=== PATIENT | male | born 1975 | race African-American/Black ===

== ENCOUNTER 2018-04-18 13:33 | Inpatient (IN) | payer BC ==
[2018-04-18 18:01] VITALS: BMI 26.4
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
[2018-04-18] MEDS ORDERED: chlordiazePOXIDE HCL 25 MG CAPSULE PO PRN (20:00)
[2018-04-18] MEDS ORDERED: MENTHOL/PHENOL 1 EACH UD MM PRN (20:00)
[2018-04-18] MEDS ORDERED: MAGNESIUM HYDROX 2400MG/30ML ORAL SUSPENSION 30 ML CUP PO PRN (20:00)
[2018-04-18] MEDS ORDERED: LOPERAMIDE HCL 2 MG CAPSULE PO PRN (20:00)
[2018-04-18] MEDS ORDERED: P-EPHED 60MG/TRIPROLIDI 2.5MG TABLET PO PRN (20:00)
[2018-04-18] MEDS ORDERED: NICOTINE POLACRILEX 2 MG GUM BUC PRN (20:00)
[2018-04-18] MEDS ORDERED: hydrOXYzine PAMOATE 50 MG CAPSULE (FP) PO PRN (20:00)
[2018-04-18] MEDS ORDERED: guaiFENesin/D-METHORPHAN HB 10 ML UNIT-DOSE CUPS PO PRN (20:00)
[2018-04-18] MEDS ORDERED: IBUPROFEN 400 MG TABLET (FP) PO PRN ×2 (20:00→20:05)
[2018-04-18] MEDS ORDERED: MAG HYDROX/AL HYDROX/SIMETH 30 ML UNIT-DOSE CUP PO PRN (20:00)
[2018-04-18] MEDS ORDERED: MAGNESIUM CITRATE 300 ML BOTTLE PO PRN (20:00)
[2018-04-18] MEDS ORDERED: ACETAMINOPHEN 325 MG TABLET (FP) PO PRN (20:04)
[2018-04-18] MEDS ORDERED: chlordiazePOXIDE HCL 25 MG CAPSULE PO ONE (20:15)
[2018-04-18] MEDS ORDERED: MELATONIN 5 MG TABLETS PO PRN (22:00)
[2018-04-18] MEDS: CYCLOBENZAPRINE HCL 5 MG TABLET PO SCH (22:44)
[2018-04-18] MEDS: chlordiazePOXIDE HCL 25 MG CAPSULE PO SCH (22:45)
[2018-04-18] MEDS: LIDOCAINE 5% TOPICAL PATCH TP SCH (22:45)
[2018-04-18] MEDS: THIAMINE HCL 100 MG TABLET (FP) PO SCH (22:45)
[2018-04-18] MEDS: LIDOCAINE PATCH REMOVAL MC SCH (22:45)
[2018-04-19] MEDS: chlordiazePOXIDE HCL 25 MG CAPSULE PO SCH ×4 (05:58→22:18)
[2018-04-19] MEDS: CYCLOBENZAPRINE HCL 5 MG TABLET PO SCH ×3 (05:58→22:18)
[2018-04-19] MEDS ORDERED: METHADONE HCL 10 MG TABLET PO SCH (09:45)
[2018-04-19] MEDS ORDERED: METHADONE HCL 40 MG DISPERSABLE TABLET ONE (09:47)
[2018-04-19] MEDS ORDERED: METHADONE HCL 5 MG TABLET ONE (09:47)
[2018-04-19] MEDS ORDERED: METHADONE 40 MG, METHADONE 5 MG PO ONE (10:00)
--- NOTE | 2018-04-19 10:21 | EKG ---
Test Reason : Blood Pressure : / mmHG Vent. Rate : 052 BPM Atrial Rate : 052 BPM P-R Int : 190 ms QRS Dur : 106 ms QT Int : 464 ms P-R-T Axes : 069 063 062 degrees QTc Int : 431 ms SINUS BRADYCARDIA NON-SPECIFIC INTRA-VENTRICULAR CONDUCTION DELAY MINIMAL VOLTAGE CRITERIA FOR LVH, MAY BE NORMAL VARIANT NO PREVIOUS ECGS AVAILABLE Confirmed by ROCIO BARRERA MD ([id number]) on 04/19/2018 10:20:43 AM Referred By: Confirmed By:ROCIO BARRERA MD
[2018-04-19 10:22] LABS: CHLORIDE 107 mmol/L (98-107); POTASSIUM 4.2 mmol/L (3.5-5.1); SODIUM 143 mmol/L (136-145)
[2018-04-19 10:29] LABS: ALBUMIN 3.2 g/dl (3.4-5.0); ALK PHOS 77 U/L (45-117); ANION GAP 4 (8-16); BILIRUBIN,TOTAL 0.2 mg/dL (0.2-1.0); BLOOD UREA NITROGEN 11 mg/dL (7-18); CALCIUM 8.2 mg/dL (8.5-10.1); CO2 32 mmol/L (21-32); CREATININE 0.8 mg/dL (0.7-1.3); GLUCOSE,RANDOM 87 mg/dL (74-106); SGOT/AST 15 U/L (15-37); SGPT/ALT 25 U/L (12-78)
[2018-04-19 10:31] LABS: HEMATOCRIT 41.1 % (35.4-49); HEMOGLOBIN 13.2 GM/dL (11.7-16.9); RBC 4.94 M/mm3 (4.00-5.60); WHITE BLOOD COUNT 4.5 K/mm3 (4.0-10.0)
[2018-04-19 10:32] LABS: MCH 26.8 pg (25.7-33.7); MCHC 32.2 g/dl (32.0-35.9); MEAN CELL VOLUME 83.3 fl (80-96); MEAN PLT VOLUME 8.7 fl (7.5-11.1); PLATELET COUNT 181 K/MM3 (134-434); RDW 13.8 % (11.9-15.9)
[2018-04-19] MEDS: PRENATAL VITAMINS W/ FOLIC ACID TABLET (FP) PO SCH (10:56)
[2018-04-19] MEDS: NICOTINE 14 MG/24 HOURS TOPICAL PATCH TD SCH (10:57)
[2018-04-19] MEDS: LIDOCAINE 5% TOPICAL PATCH TP SCH (10:58)
--- NOTE | 2018-04-19 12:19 | PN ---
S CIWA - CIWA Score Nausea/Vomitin Muscle Tremors: 3 Anxiety: 3 Agitation: 3 Paroxysmal Sweats: 1-Minimal Palms Moist Orientation: 0-Oriented Tacttile Disturbances: 1-Very Mild Itch/Numbness Auditory Disturbances: 1-Very Mild Visual Disturbances: 0-None Headache: 2-Mild CIWA-Ar Total Score: 17 [facility] Progress Note (SOAP) Subjective: alert,irritable,anxious,tremor,pain in the body and back Objective: 04/19/18 12:15 Vital Signs Temperature 97.5 F L 04/19/18 08:59 Pulse Rate 56 L 04/19/18 08:59 Respiratory Rate 18 04/19/18 08:59 Blood Pressure 100/50 04/19/18 08:59 O2 Sat by Pulse Oximetry (%) 04/19/18 12:16 ekg sinus bradycardia lvh prolong qt 464/431 no chest pain,no sob,no dizziness Laboratory Last Values WBC 4.5 K/mm3 (4.0-10.0) D 04/19/18 07:30 RBC 4.94 M/mm3 (4.00-5.60) 04/19/18 07:30 Hgb 13.2 GM/dL (11.7-16.9) 04/19/18 07:30 Hct 41.1 % (35.4-49) 04/19/18 07:30 MCV 83.3 fl (80-96) 04/19/18 07:30 MCH 26.8 pg (25.7-33.7) 04/19/18 07:30 MCHC 32.2 g/dl (32.0-35.9) 04/19/18 07:30 RDW 13.8 % (11.9-15.9) 04/19/18 07:30 Plt Count 181 K/MM3 (134-434) 04/19/18 07:30 MPV 8.7 fl (7.5-11.1) 04/19/18 07:30 Sodium 143 mmol/L (136-145) 04/19/18 07:30 Potassium 4.2 mmol/L (3.5-5.1) 04/19/18 07:30 Chloride 107 mmol/L (98-107) 04/19/18 07:30 Carbon Dioxide 32 mmol/L (21-32) 04/19/18 07:30 Anion Gap 4 (8-16) L 04/19/18 07:30 BUN 11 mg/dL (7-18) 04/19/18 07:30 Creatinine 0.8 mg/dL (0.7-1.3) 04/19/18 07:30 Creat Clearance w eGFR > 60 (>60) 04/19/18 07:30 Random Glucose 87 mg/dL (74-106) D 04/19/18 07:30 Calcium 8.2 mg/dL (8.5-10.1) L 04/19/18 07:30 Total Bilirubin 0.2 mg/dL (0.2-1.0) D 04/19/18 07:30 AST 15 U/L (15-37) D 04/19/18 07:30 ALT 25 U/L (12-78) D 04/19/18 07:30 Alkaline Phosphatase 77 U/L (45-117) D 04/19/18 07:30 Total Protein 6.0 g/dl (6.4-8.2) L 04/19/18 07:30 Albumin 3.2 g/dl (3.4-5.0) L 04/19/18 07:30 Assessment: 04/19/18 12:18 withdrawal symptom Plan: continue detox
--- NOTE | 2018-04-19 16:30 | CONSULT ---
[facility] Psychiatric Consult - Data Date of interview: 04/19/18 Admission source: [facility] Identifying data: Patient is a 42 year old male, domiciled, father of one, and unemployed (pending SSI.) This is one of multiple admissions for patient. Pt. admitted to for alcohol, opioid, and PCP dependence. Substance Abuse History: Smoking Cessation. Smoking history: Current every day smoker. Have you smoked in the past 12 months: Yes. Aproximately how many cigarettes per day: 10. Hx Chewing Tobacco Use: No. Initiated information on smoking cessation: Yes. 'Breaking Loose' booklet given: 04/18/18. - Substance & Tx. History. Hx Alcohol Use: Yes. Hx Substance Use: Yes. Substance Use Type : Alcohol, Tranquilizers. Hx Substance Use Treatment: Yes (ACI one month ago ) . - Substances Abused. Alcohol. Route: Oral. Frequency: No use in 30 days. Amount used: 3 pints. Age of first use: 17. Date of Last Use: . PCP. Frequency: 3-6 times per week. Amount used: 1-2 bags. Age of first use: 20. Date of Last Use: 04/15/18. Alprazolam (Xanax). Route: Oral. Frequency: 3-6 times per week. Amount used: 0.25 mg. Age of first use: 24. Date of Last Use: 04/17/18 Medical History: Asthma Psychiatric History: Patient denies h/o psychiatric hospitalizations, outpatient care, and suicide attempt. Pt is not reliable. As per previous records, patient reported a history of bipolar disorder and schizophrenia and has been prescribed seroquel 100mg and klonopin 2mg. Pt. with a history of non- compliance to medications and outpatient care. Patient denies suicidal and homicidal ideation. Physical/Sexual Abuse/Trauma History: Denies. Mental Status Exam - Mental Status Exam Alert and Oriented to: Time, Place, Person Cognitive Function: Good Patient Appearance: Unkempt Mood: Withdrawn Affect: Mood Congruent Patient Behavior: Fatigued, Guarded Speech Pattern: Delayed Voice Loudness: Moderately Soft/Quiet Thought Process: Goal Oriented Thought Disorder: Not Present Hallucinations: Denies Suicidal Ideation: Denies Homicidal Ideation: Denies Insight/Judgement: Poor Sleep: Fair Appetite: Fair Muscle strength/Tone: Normal Gait/Station: Normal Psychiatric Findings - Problem List ([place] 1, 2,3) (1) Substance induced mood disorder Current Visit: Yes Status: Acute (2) Alcohol dependence with uncomplicated withdrawal Current Visit: Yes Status: Acute (3) Nicotine dependence Current Visit: Yes Status: Chronic Qualifiers: Nicotine product type: cigarettes (4) Opioid dependence on agonist therapy Current Visit: Yes Status: Chronic Comment: on methadone 45 mg qd, last medicated today, dose pending verification (5) PCP dependence Current Visit: Yes Status: Acute - Initial Treatment Plan Initial Treatment Plan: Psychoeducation provided. Detoxification in progress. Observation.
[2018-04-19] MEDS: THIAMINE HCL 100 MG TABLET (FP) PO SCH (22:18)
[2018-04-19] MEDS: LIDOCAINE PATCH REMOVAL MC SCH (22:19)
[2018-04-20] MEDS: chlordiazePOXIDE HCL 25 MG CAPSULE PO SCH ×3 (05:47→17:20)
[2018-04-20] MEDS ORDERED: METHADONE HCL 40 MG DISPERSABLE TABLET ONE (05:48)
[2018-04-20] MEDS: CYCLOBENZAPRINE HCL 5 MG TABLET PO SCH ×3 (05:48→22:26)
[2018-04-20] MEDS: METHADONE 40 MG, METHADONE 5 MG PO SCH (05:48)
[2018-04-20] MEDS ORDERED: METHADONE HCL 5 MG TABLET ONE (05:48)
[2018-04-20] MEDS: PRENATAL VITAMINS W/ FOLIC ACID TABLET (FP) PO SCH (10:37)
[2018-04-20] MEDS: NICOTINE 14 MG/24 HOURS TOPICAL PATCH TD SCH (10:38)
[2018-04-20] MEDS: LIDOCAINE 5% TOPICAL PATCH TP SCH (10:39)
--- NOTE | 2018-04-20 11:40 | PN ---
[facility] CIWA - CIWA Score Nausea/Vomitin-No Nausea/No Vomiting Muscle Tremors: 1-None Visible, but [place] Anxiety: 2 Agitation: 1-Slight > Activity Paroxysmal Sweats: 2 Orientation: 0-Oriented Auditory Disturbances: 0-None Visual Disturbances: 1-Very Mild Sensitivity Headache: 0-None Present [facility] Progress Note (SOAP) Subjective: difficulty sleep, sweats, chills Objective: 04/20/18 11:39 Vital Signs Temperature 98.2 F 04/20/18 10:00 Pulse Rate 63 04/20/18 10:00 Respiratory Rate 18 04/20/18 10:00 Blood Pressure 141/76 04/20/18 10:00 O2 Sat by Pulse Oximetry (%) Laboratory Last Values WBC 4.5 K/mm3 (4.0-10.0) D 04/19/18 07:30 RBC 4.94 M/mm3 (4.00-5.60) 04/19/18 07:30 Hgb 13.2 GM/dL (11.7-16.9) 04/19/18 07:30 Hct 41.1 % (35.4-49) 04/19/18 07:30 MCV 83.3 fl (80-96) 04/19/18 07:30 MCH 26.8 pg (25.7-33.7) 04/19/18 07:30 MCHC 32.2 g/dl (32.0-35.9) 04/19/18 07:30 RDW 13.8 % (11.9-15.9) 04/19/18 07:30 Plt Count 181 K/MM3 (134-434) 04/19/18 07:30 MPV 8.7 fl (7.5-11.1) 04/19/18 07:30 Sodium 143 mmol/L (136-145) 04/19/18 07:30 Potassium 4.2 mmol/L (3.5-5.1) 04/19/18 07:30 Chloride 107 mmol/L (98-107) 04/19/18 07:30 Carbon Dioxide 32 mmol/L (21-32) 04/19/18 07:30 Anion Gap 4 (8-16) L 04/19/18 07:30 BUN 11 mg/dL (7-18) 04/19/18 07:30 Creatinine 0.8 mg/dL (0.7-1.3) 04/19/18 07:30 Creat Clearance w eGFR > 60 (>60) 04/19/18 07:30 Random Glucose 87 mg/dL (74-106) D 04/19/18 07:30 Calcium 8.2 mg/dL (8.5-10.1) L 04/19/18 07:30 Total Bilirubin 0.2 mg/dL (0.2-1.0) D 04/19/18 07:30 AST 15 U/L (15-37) D 04/19/18 07:30 ALT 25 U/L (12-78) D 04/19/18 07:30 Alkaline Phosphatase 77 U/L (45-117) D 04/19/18 07:30 Total Protein 6.0 g/dl (6.4-8.2) L 04/19/18 07:30 Albumin 3.2 g/dl (3.4-5.0) L 04/19/18 07:30 RPR Titer Nonreactive (NONREACTIVE) 04/19/18 07:30 Assessment: 04/20/18 11:39 Patient AOx3 in no apparent distress no adventitious breath sounds ambulating in the unit Plan: continue detox continue to monitor
[2018-04-20] MEDS: THIAMINE HCL 100 MG TABLET (FP) PO SCH (22:26)
[2018-04-20] MEDS: LIDOCAINE PATCH REMOVAL MC SCH (22:26)
[2018-04-20] MEDS: chlordiazePOXIDE 5 MG CAPSULE PO SCH (22:26)
[2018-04-21] MEDS ORDERED: METHADONE HCL 40 MG DISPERSABLE TABLET ONE (03:16)
[2018-04-21] MEDS ORDERED: METHADONE HCL 5 MG TABLET ONE (03:16)
[2018-04-21] MEDS: chlordiazePOXIDE 5 MG CAPSULE PO SCH ×3 (05:48→17:23)
[2018-04-21] MEDS: METHADONE 40 MG, METHADONE 5 MG PO SCH (05:48)
[2018-04-21] MEDS: CYCLOBENZAPRINE HCL 5 MG TABLET PO SCH ×3 (05:48→22:39)
[2018-04-21] MEDS: LIDOCAINE 5% TOPICAL PATCH TP SCH (10:26)
[2018-04-21] MEDS: NICOTINE 14 MG/24 HOURS TOPICAL PATCH TD SCH (10:26)
[2018-04-21] MEDS: PRENATAL VITAMINS W/ FOLIC ACID TABLET (FP) PO SCH (10:26)
--- NOTE | 2018-04-21 12:09 | PN ---
[facility] Progress Note (SOAP) Subjective: feeling better no tremor less sweat slept through the night Objective: 04/21/18 12:11 Vital Signs Temperature 98.4 F 04/21/18 09:06 Pulse Rate 73 04/21/18 09:06 Respiratory Rate 18 04/21/18 09:06 Blood Pressure 134/69 04/21/18 09:06 O2 Sat by Pulse Oximetry (%) Laboratory Last Values WBC 4.5 K/mm3 (4.0-10.0) D 04/19/18 07:30 RBC 4.94 M/mm3 (4.00-5.60) 04/19/18 07:30 Hgb 13.2 GM/dL (11.7-16.9) 04/19/18 07:30 Hct 41.1 % (35.4-49) 04/19/18 07:30 MCV 83.3 fl (80-96) 04/19/18 07:30 MCH 26.8 pg (25.7-33.7) 04/19/18 07:30 MCHC 32.2 g/dl (32.0-35.9) 04/19/18 07:30 RDW 13.8 % (11.9-15.9) 04/19/18 07:30 Plt Count 181 K/MM3 (134-434) 04/19/18 07:30 MPV 8.7 fl (7.5-11.1) 04/19/18 07:30 Sodium 143 mmol/L (136-145) 04/19/18 07:30 Potassium 4.2 mmol/L (3.5-5.1) 04/19/18 07:30 Chloride 107 mmol/L (98-107) 04/19/18 07:30 Carbon Dioxide 32 mmol/L (21-32) 04/19/18 07:30 Anion Gap 4 (8-16) L 04/19/18 07:30 BUN 11 mg/dL (7-18) 04/19/18 07:30 Creatinine 0.8 mg/dL (0.7-1.3) 04/19/18 07:30 Creat Clearance w eGFR > 60 (>60) 04/19/18 07:30 Random Glucose 87 mg/dL (74-106) D 04/19/18 07:30 Calcium 8.2 mg/dL (8.5-10.1) L 04/19/18 07:30 Total Bilirubin 0.2 mg/dL (0.2-1.0) D 04/19/18 07:30 AST 15 U/L (15-37) D 04/19/18 07:30 ALT 25 U/L (12-78) D 04/19/18 07:30 Alkaline Phosphatase 77 U/L (45-117) D 04/19/18 07:30 Total Protein 6.0 g/dl (6.4-8.2) L 04/19/18 07:30 Albumin 3.2 g/dl (3.4-5.0) L 04/19/18 07:30 RPR Titer Nonreactive (NONREACTIVE) 04/19/18 07:30 lab noted Assessment: 04/21/18 12:11 mild withdrawal sx Plan: medically supervised detox
[2018-04-21] MEDS: LIDOCAINE PATCH REMOVAL MC SCH (22:39)
[2018-04-21] MEDS: chlordiazePOXIDE HCL 10 MG CAPSULE PO SCH (22:39)
[2018-04-21] MEDS: THIAMINE HCL 100 MG TABLET (FP) PO SCH (22:39)
[2018-04-22] MEDS ORDERED: METHADONE HCL 5 MG TABLET ONE (04:21)
[2018-04-22] MEDS ORDERED: METHADONE HCL 40 MG DISPERSABLE TABLET ONE (04:22)
[2018-04-22] MEDS: METHADONE 40 MG, METHADONE 5 MG PO SCH (05:43)
[2018-04-22] MEDS: chlordiazePOXIDE HCL 10 MG CAPSULE PO SCH (05:44)
[2018-04-22] MEDS: CYCLOBENZAPRINE HCL 5 MG TABLET PO SCH (07:58)
--- NOTE | 2018-04-22 09:32 | PN ---
S Progress Note (SOAP) Subjective: alert,no complaint Objective: 04/22/18 09:30 Vital Signs Temperature 97.5 F L 04/22/18 06:22 Pulse Rate 62 04/22/18 06:22 Respiratory Rate 18 04/22/18 06:22 Blood Pressure 126/62 04/22/18 06:22 O2 Sat by Pulse Oximetry (%) Assessment: 04/22/18 09:31 detox completed,no withdrawal symptom Plan: discharge today,follow up with after care program as arrangement
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
[2018-04-22 09:46] VITALS: BP 117/68; PULSE 70; TEMP 97.7
== END 2018-04-22 10:00 | disposition home or self-care (01) | DRG 773 ==
LOC: YASAS 13:33 → Y6N 19:28
PROVIDERS: ADMIT Surgery; ATTEND Surgery
PROC: HZ2ZZZZ Detoxification Services for Substance Abuse Treatment (ICD-10-PCS; principal; 2018-04-18)
DX: F11.20 Opioid dependence, uncomplicated (principal); F10.230 Alcohol dependence with withdrawal, uncomplicated; F16.20 Hallucinogen dependence, uncomplicated; F17.210 Nicotine dependence, cigarettes, uncomplicated; F19.24 Other psychoactive substance dependence with psychoactive substance-induced mood disorder; F99 Mental disorder, not otherwise specified; J45.909 Unspecified asthma, uncomplicated
CPT/HCPCS: 36415; 80053; 85027; 86593; 93005; 93010